=== PATIENT | female | born 2000 | race Two or more races ===

== ENCOUNTER 2025-09-18 20:12 | Emergency (ER) | payer MEDICAID, SELFPAY ==
[2025-09-18 20:14] VITALS: BMI 30.9
[2025-09-18 20:47] VITALS: BP 119/82; PULSE 102; RESP 18; TEMP 36.9; O2SAT 96
--- NOTE | 2025-09-18 21:10 | XR_ITS ---
EXAMINATION: PA chest single view TECHNIQUE: Upright PA chest single view Date and time: September 18, 2025, 2123 hours INDICATION: Chest pain shortness of breath 3 days FINDINGS: Normal heart size Lungs are clear. Intact osseous structures IMPRESSION: No active disease
--- NOTE | 2025-09-18 21:10 | EKG_ITS ---
[facility] Test Date: 2025-09-18 Pat Name: LEO HONEYCUTT Department: Room: - Gender: Female Mat Inspector: : [id number] Requested By: Venecia Abarca Order Number: [id number] Reading MD: Venecia Abarca Measurements Intervals [place] Rate: 104 P: 65 [place]: 134 QRS: 40 QRSD: 86 T: 23 QT: 320 QTc: 421 Interpretive Statements SINUS TACHYCARDIA NONSPECIFIC T-WAVE ABNORMALITY ABNORMAL RHYTHM ECG No previous ECG available for comparison /[id number]/[email or web address]/[id number].pdf
[2025-09-18 21:52] LABS: Collection Type, Urine Voided
[2025-09-18 21:55] LABS: Basophils # (Auto) 0.0 Thou/mm3 (0.0-0.2); Basophils % (Auto) 0 % (0-2.5); Eosinophils # (Auto) 0.0 Thou/mm3 (0.0-0.5); Eosinophils % (Auto) 0 % (0-10); Hematocrit 37.9 % (36.0-46.0); Hemoglobin 13.0 g/dL (12.0-16.0); Immature Granulocytes Auto 0.06 Thou/mm3 (0.00-0.00); Lymphocytes # (Auto) 1.5 Thou/mm3 (1.0-4.8); Lymphocytes % (Auto) 9 % (10-50); Mean Corpuscular HGB Conc 34.3 g/dl (31.0-37.0); Mean Corpuscular Hemoglobin 29.1 pg (25.0-35.0); Mean Corpuscular Volume 85 fL (80-100); Monocytes # (Auto) 1.0 Thou/mm3 (0.0-0.8); Monocytes % (Auto) 6 % (0-12); Neutrophils # (Auto) 14.0 Thou/mm3 (1.8-7.7); Neutrophils % (Auto) 85 % (37-80); Nucleated Red Blood Cell # 0.00 Thou/mm3 (0.00-0.00); Nucleated Red Blood Cell % 0 /100 WBC (0); Platelet Count 222 Thou/mm3 (140-440); RDW Standard Deviation 35.6 fL (36.4-46.3); Red Blood Count 4.47 Miln/mm3 (4.00-5.20); White Blood Count 16.5 Thou/mm3 (3.6-11.0)
[2025-09-18 22:00] LABS: Bilirubin,Urine Negative (Negative); Blood,Urine 1+ (Negative); Clarity,Urine Clear (Clear/Hazy); Color,Urine Lt-Yellow (Lt Yel-Yel); Glucose, Urine Negative (Negative); Hyaline Casts,Urine < 1 /hpf (0-1); Ketones,Urine Negative (Negative); Leukocyte Esterase,Urine Negative (Negative); Nitrite,Urine Negative (Negative); PH,Urine 6.0 (5.0-7.0); Protein,Urine Negative (Neg - Trace); RBC,Urine 3 /hpf (0-3); Specific Gravity,Urine 1.017 (1.001-1.035); Squamous Epithelial Cell,Urine 1 /hpf (0-5); Urobilinogen,Urine Negative mg/dL (0.0-1.0); WBC,Urine 1 /hpf (0-5)
[2025-09-18 22:01] LABS: HCG Qualitative,Urine Negative
[2025-09-18 22:09] LABS: Influenza A Ag Negative; Influenza B Ag Negative
[2025-09-18 22:11] LABS: B-Type Natriuretic Peptide 22 pg/mL (0-100)
[2025-09-18 22:14] LABS: Alanine Aminotransferase 48 U/L (10-49); Albumin, Serum 4.7 gm/dL (3.5-5.0); Albumin/Globulin Ratio 1.4 (1.2-2.2); Alkaline Phosphatase 113 U/L (46-116); Anion Gap 10 (7-16); Aspartate Amino Transferase 35 U/L (0-34); BUN/Creatinine Ratio 20 Ratio (12-20); Bilirubin,Total 0.3 mg/dL (0.3-1.2); Blood Urea Nitrogen 12 mg/dL (9-23); Calcium 9.6 mg/dL (8.3-10.6); Calcium (Corrected) 9.6 mg/dL (8.5-10.1); Carbon Dioxide 25.2 mMol/L (20.0-31.0); Chloride 104 mMol/L (98-107); Creatinine (Component) 0.6 mg/dL (0.6-1.3); Estimated Creatinine Clearance 135.0 mL/min (>60); Globulin 3.3 gm/dL (2.3-3.5); Glucose 128 mg/dL (74-106); Osmolality,Calculated 279 (275-295); Potassium 3.8 mMol/L (3.4-5.1); Sodium 139 mMol/L (136-145); Total Protein 8.0 gm/dL (5.7-8.2); Troponin I 0.025 ng/mL (0.0-0.045); eGFR > 60 See Note
[2025-09-18 23:23] VITALS: BP 131/71; PULSE 81; RESP 18; TEMP 37; O2SAT 99
[2025-09-19 00:01] LABS: Influenza A Ag Negative; Influenza B Ag Negative
[2025-09-19 00:02] LABS: Strep A Rapid Negative (Negative)
[2025-09-19 01:58] LABS: Thyroid Stimulating Hormone < 0.01 uIU/mL (0.55-4.78)
--- NOTE | 2025-09-19 02:09 | XR_ITS ---
EXAMINATION: Thyroid sonography complete TECHNIQUE: Grayscale sonographic images thyroid lobes Date and time: September 19, 2025, 0224 hours INDICATIONS: Dizziness cardiac palpitations sore throat this week FINDINGS: Right thyroid 5.1 cm Left thyroid 4.3 cm No thyroid nodules Increased vascularity to both lobes of the thyroid IMPRESSION: Right thyromegaly, no thyroid nodules Increased vascularity to both lobes of the thyroid, consider correlation with oral I-123 thyroid uptake and scan
--- NOTE | 2025-09-19 02:20 | PD.EDRME ---
Rapid Medical Screening Exam RME Arrival date/time: 09/18/25 20:12 This is a case of 25-year-old female with no medical history came in in the emergency room due to palpitation and throat discomfort for 3 days worsening of the symptoms this patient decided to start consulted in the emergency room Chief Complaint: Dental/Oral/Throat Time Seen by Provider: 09/18/25 20:17 Vital signs: Vital Signs Temperature 98.5 F 09/18/25 20:47 Pulse Rate 102 H 09/18/25 20:47 Respiratory Rate 18 09/18/25 20:47 Blood Pressure 119/82 09/18/25 20:47 Pulse Oximetry (%) 96 09/18/25 20:47 Oxygen Delivery Method Room Air 09/18/25 20:47 Exam: Normal rate regular rhythm no murmur lung sounds clear HEENT exam is normal Clinical Impression: Palpitation throat pain
[2025-09-19 02:22] LABS: Lactate (Lactic Acid) 3.7 mMol/L (0.4-2.0)
--- NOTE | 2025-09-19 03:39 | PRELIM_ITS ---
Thyroid ultrasound. September 19, 2025 at 0223 hours Clinical history: Thyroid problem. Technique: Ultrasound of the thyroid was performed. Comparison: No prior study is available for comparison. Findings: The right lobe of the thyroid is enlarged measuring 5.1 x 2 x 2.2 cm and demonstrates heterogeneous echotexture with increased vascularity. The left lobe of the thyroid is mildly enlarged measuring 4.3 x 1.6 x 1.6 cm and demonstrates heterogeneous echotexture with increased vascularity. The isthmus measures 2 mm. No solid or cystic mass lesion is noted. No significant cervical lymph nodes are noted. Impression: Heterogeneous thyroid with increased vascularity, likely related to thyroiditis. Recommend clinical correlation. TIRADS Score: TI-RADS 2: Benign conditions (0% risk of malignancy). Report Electronically Signed By: Jessica Chaudhary 09/19/2025 3:38:31 AM [EST]
[2025-09-19 03:51] LABS: T4 (Thyroxine) 7.5 mcg/dL (4.5-10.9)
[2025-09-19 03:52] LABS: Free T3 3.1 pg/mL (2.3-4.2)
[2025-09-19 03:56] VITALS: BP 169/92; PULSE 110; RESP 20; O2SAT 100
[2025-09-19 04:26] VITALS: BP 131/75; PULSE 111; RESP 17; TEMP 36.8; O2SAT 98
[2025-09-19] MEDS: SODIUM CHLORIDE 0.9% 1000 ML 1,000 ML 999 ML IV (04:59)
[2025-09-19 05:24] LABS: Reflex Lactate? Y
[2025-09-19 06:45] LABS: Lactic Acid, 3 HR 1.1 mMol/L (0.4-2.0)
--- NOTE | 2025-09-19 06:50 | EDNOTE_ITS ---
ED General RME/HPI General Chief complaint: Dental/Oral/Throat Stated complaint: SORE THROAT, FEELS LIKE HEART BEATING FAST Time Seen by Provider: 09/18/25 20:17 Arrival date/time: 09/18/25 20:12 RME / HPI RME / HPI narrative: 09/18/25 20:12 This is a case of 25-year-old female with no medical history came in in the emergency room due to palpitation and throat discomfort for 3 days worsening of the symptoms this patient decided to start consulted in the emergency room Exam: Normal rate regular rhythm no murmur lung sounds clear HEENT exam is normal Impression: Palpitation throat pain Related Data Previous Rx's ?Medication ?Instructions ?Recorded propranolol 10 mg tablet 10 mg PO TID PRN tachycardia 1 09/19/25 week #21 tabs Allergies Allergy/AdvReac Type Severity Reaction Status Date / Time No Known Allergies Allergy Verified 09/19/25 01:25 ED Exam Narrative Physical exam: Physical Exam: GENERAL: Awake, answering questions appropriately, appears stated age HEENT: NC/AT. Moist mucosa. PERRLA/EOMI. No oropharyngeal erythema or exudation noted. No thyroid nodules palpated or thyroid tenderness CARDIO: Mildly tachycardic but regular rhythm, no obvious murmurs, no JVD. PULM: No coughing or visible SOB. Lungs CTA B/L. GI: Abdomen soft, NT/ND, +BS. SKIN/MSK/EXT: No wounds/discoloration/rashes/edema/amputations noted. +Pedal pulses present B/L. NEURO: Oriented x3, Moves extremities x4, no focal neurologic deficits noted. Course Quality Measures none Orders Category Date Time Status EKG (ED ONLY) *Do not use* NOW Care 09/18/25 21:10 Completed EKG (ED Only) Stat Exams 09/18/25 21:10 Draft US thyroid Stat Exams 09/19/25 02:09 Taken XR chest 1V Stat Exams 09/18/25 21:10 Completed BNP [B-Type Natriuretic Peptide] Stat Lab 09/18/25 21:42 Completed CBC Stat Lab 09/18/25 21:42 Completed CMP [Comprehensive Metabolic Panel] Stat Lab 09/18/25 21:42 Completed Free T3 Stat Lab 09/19/25 02:17 Completed HCG Qualitative,Urine Stat Lab 09/18/25 21:15 Completed Influenza A & B Rapid Panel Stat Lab 09/18/25 21:15 Completed Influenza A & B Rapid Panel Stat Lab 09/18/25 23:15 Completed Lactic Acid [Lactate (Lactic Acid)] Stat Lab 09/18/25 22:19 Completed Lactic Acid, 3 HR Stat Lab 09/19/25 06:30 Completed [place] Screen Stat Lab 09/18/25 21:42 Received Strep A Rapid Stat Lab 09/18/25 23:15 Completed T4 (Thyroxine) Stat Lab 09/19/25 02:17 Completed Thyroid Stimulating Hormone Stat Lab 09/18/25 21:42 Completed Troponin I Stat Lab 09/18/25 21:42 Completed Urinalysis Stat Lab 09/18/25 21:15 Completed Propranolol HCl [Inderal] Med 09/19/25 07:00 Discontinued 30 mg PO X1 ONE Sodium Chloride 0.9% 1000 ml [Ns] 1,000 ml Med 09/18/25 22:19 Discontinued IV 999 mls/hr Sodium Chloride 0.9% 1000 ml [Ns] 1,000 ml Med 09/19/25 04:51 Discontinued IV 999 mls/hr Vital Signs Vital signs: Vital Signs Temperature 98.5 F 09/18/25 20:47 Pulse Rate 102 H 09/18/25 20:47 Respiratory Rate 18 09/18/25 20:47 Blood Pressure 119/82 09/18/25 20:47 Pulse Oximetry (%) 96 09/18/25 20:47 Oxygen Delivery Method Room Air 09/18/25 20:47 Discharge Plan Plan Patient Disposition: HOME (Self Care) Discharge Disposition comment: Please take propranolol 10 mg 3 times daily as needed for symptomatic tachycardia Follow-up with PCP within the next 3 days for follow-up of thyroid panel and possible need for endocrinology referral Patient condition on transfer: Stable Prescriptions/Referrals Prescriptions/Med Rec: New propranolol 10 mg tablet 10 mg PO TID PRN (Reason: tachycardia) 7 Days Qty: 21 0RF Referrals: No Primary/Family,Physician [Primary Care Provider] - In 1 week Problem List Clinical Impression: Thyrotoxicosis Patient/Caregiver Discharge Instructions Education Materials: Common Thyroid Problems Print Language: Israeli Stand Alone Forms: Kristin Award Info., Patient Portal Info Letter MDM Narrative MDM hospital course (for use when minimal MDM required): HPI: 25-year-old female with no significant past medical history not on any medications or surgeries presenting to the ED on 09/19 with tachycardia. Patient states that she was at her usual baseline when she started developing fast heart rate which felt uncomfortable to her and so she presented to the emergency room. Of note, patient's significant other is bedside and stated that he was sick but patient denies having any upper respiratory tract symptoms. She also denies having any other concerning symptoms such as chest pain, shortness of breath, dizziness, abdominal pain, nausea, vomiting, diarrhea. She denies having any recent pregnancies or giving . On examination, please refer to the physical exam above; patient presented normotensive but tachycardic with a heart rate fluctuating between low 100s to 110s, respiratory rate of 18, afebrile satting 96 on room air. Pertinent lab findings included leukocytosis with a white count of 16.5 and left shift with neutrophil 85% otherwise CBC unremarkable; CMP also largely unremarkable without any concerning findings, there is mild elevation in liver enzymes with AST 35, ALT 48 likely secondary to MASLD, TSH was less than 0.01 but free T4 was 7.5. Patient also has mild lactic acidosis of 3.7 which is down trended to 1.1 urinalysis negative for any signs of infection, chest x-ray did not show any active disease and EKG showed sinus tachycardia without any concerning ST changes. Thyroid ultrasound was ordered and is pending read. This time differentials include thyrotoxicosis, thyroiditis, toxic nodular goiter, Graves' disease less likely, idiopathic versus viral thyroiditis #Thyroiditis #Thyrotoxicosis on examination, patient does not have any thyroid tenderness or nodules Labs are significant for subtherapeutic thyrotoxicosis with an unknown etiology at this time Lactic acidosis is resolved with 2 L IV fluid resuscitation Rest of workup largely unremarkable Plan: Gave patient p.o. propranolol 30 mg for symptomatic tachycardia Will discharge on propranolol 10 mg 3 times daily as needed for symptomatic tachycardia Advised patient to follow-up with PCP within the next 3 days for follow-up of thyroid panel and possible need for endocrinology referral Patient seen and assessed with attending Dr. Edson Palafox, DO PGY-2 Internal Medicine - GME Medication Administration(s) Medication Administration History Discontinued Medications Sodium Chloride (Ns) 1,000 mls @ 999 mls/hr IV .Q1H1M ONE Stop: 09/18/25 23:19 Last Admin: 09/18/25 22:32 Dose: Not Given Documented By: RENETTA Non-Admin Reason: Cancelled by Provider Sodium Chloride (Ns) 1,000 mls @ 999 mls/hr IV .Q1H1M ONE Stop: 09/19/25 05:51 Last Infusion: 09/19/25 06:01 Dose: Infused Documented By: Admin: 09/19/25 04:59 Dose: 999 mls/hr Documented By: RHODA Propranolol HCl (Propranolol 10 Mg Tablet) 30 mg PO X1 ONE Stop: 09/19/25 07:01
[2025-09-19 06:55] VITALS: BP 126/83; PULSE 111; RESP 14; TEMP 37.1; O2SAT 98
[2025-09-19 07:27] VITALS: BP 151/84; PULSE 109
[2025-09-19] MEDS: PROPRANOLOL 10 MG TABLET 30 MG PO (07:27)
[2025-09-19 07:31] VITALS: BP 151/84; PULSE 117; RESP 19; TEMP 37.1; O2SAT 98
[2025-09-19 10:32] LABS: Mono Screen Negative (Negative)
== END 2025-09-19 07:32 | disposition home or self-care (01) ==
PROVIDERS: Nurse Practitioner Family; Emergency Provider Emergency Medicine
DX: E05.90 Thyrotoxicosis, unspecified without thyrotoxic crisis or storm (principal); R07.9 Chest pain, unspecified; R06.02 Shortness of breath
CPT/HCPCS: 36415; 71045; 76536; 80053; 81001; 81025; 83605; 83880; 84436; 84443; 84481; 84484; 85025; 86308; 87502; 87651; 93005; 96360; 99284; J7030; A9270